=== PATIENT | male | born 1955 | race Caucasian/White ===

== ENCOUNTER 2024-08-24 23:30 | Emergency (ER) | payer MEDICARE ==
[~2024-08-24] VITALS: Ht 177.8 cm; Wt 109.0 kg
[2024-08-25 00:24] VITALS: BP 167/91; PULSE 69; RESP 16; TEMP 98.2; O2SAT 98
== END 2024-08-25 00:44 | disposition home or self-care (01) ==
LOC: ER 23:48
DX: Z13.9 Encounter for screening, unspecified (principal); Z91.148 Patient's other noncompliance with medication regimen for other reason
CPT/HCPCS: 99281